=== PATIENT | female | born 1985 | race American Indian/Alaskan Native ===

== ENCOUNTER 2016-07-01 14:48 | Outpatient (CLI) | payer MEDICAID ==
--- NOTE | 2016-07-02 11:28 | Ultrasound Report ---
OB ULTRASOUND: Transabdominal imaging. Gestation: [place] Position: Cephalic Amniotic Fluid: (WNL 7-24 cm) CHANTEL = 21.7 cm Placenta: Anterior Placental Grade: I Heart Rate: 129 BPM Cervical length: 3.0 cm (Normal > 3 cm) NEUROANATOMY VISUALIZED: Cerebellum Lateral Ventricle ANATOMY VISUALIZED: Stomach Kidneys Bladder Diaphragm 4 Chamber Heart Heart 3 Vessel Cord Abd. Cord Insert SPINE VISUALIZED: Transverse Limited spine due to position The following are not demonstrated due to maternal body habitus or lie: cisterna magnum, cerebellum, spine. BPD: 8.8 cm = 35 w 2 d HC: 31.9 cm = 36 w 0 d AC: 33.8 cm = 37 w 5 d FL: 7.3 cm = 37 w 3 d HC/AC Ratio: 0.9 Cephalic Index: 82.0 Estimated Weight: 3132 grams LMP: 09-20-15 Clinical age = 40 w 5 d EDC: 06-26-16 US Gest. Age = 36 w 4 d EDC: 07-25-16 COMMENT: No gestational abnormality identified. Echogenic amniotic fluid consistent with increased meconium.
== END 2016-07-01 18:15 | disposition home or self-care (01) ==
LOC: TRG 14:48 → LD 16:44 → TRG 18:15
PROVIDERS: ATTEND Obstetrics & Gynecology Gynecology
DX: O77.9 Labor and delivery complicated by fetal stress, unspecified (principal); O47.1 False labor at or after 37 completed weeks of gestation; Z3A.39 39 weeks gestation of pregnancy
CPT/HCPCS: 59025; 76805

== ENCOUNTER 2016-07-11 05:32 | Inpatient (IN) | payer MEDICAID ==
[2016-07-11] MEDS ORDERED: PITOCin/NS 20 UNIT/1000ML DRIP 1,000 ML IV ONE (05:39)
[2016-07-11] MEDS ORDERED: LACTATED RINGERS 1,000 ML ONE (05:39)
[2016-07-11] MEDS ORDERED: PITOCin/NS 20 UNIT/1000ML DRIP 1,000 ML IV SCH (05:45)
[2016-07-11] MEDS ORDERED: LACTATED RINGERS 1,000 ML IV SCH (05:45)
[2016-07-11 07:57] LABS: Hematocrit 30.5 % (30.3-42.9); Hemoglobin 10.3 gm/dl (10.1-14.3); Mean Corpuscular HGB Conc 34 % (30-34); Mean Corpuscular Hemoglobin 30 pg (28-32); Mean Corpuscular Volume 89 fl (79-97); Platelet Count 233 K/mm3 (140-440); Red Blood Count 3.42 M/mm3 (3.65-5.03); Red Cell Distribution Width 14.1 % (13.2-15.2); White Blood Count 12.3 K/mm3 (4.5-11.0)
[2016-07-11 09:12] LABS: Urine Drugs of Abuse Note Disclamer
[2016-07-11] MEDS: MOTRIN PO SCH ×3 (10:30→23:45)
[2016-07-11] MEDS ORDERED: TUCKS PAD TP PRN (11:55)
[2016-07-11] MEDS ORDERED: LANSINOH TP PRN (11:55)
[2016-07-11] MEDS ORDERED: BENADRYL PO PRN (11:55)
[2016-07-11] MEDS ORDERED: PHENERGAN PO PRN (11:55)
[2016-07-11] MEDS ORDERED: TYLENOL PO PRN (11:55)
[2016-07-11] MEDS ORDERED: DULCOLAX PR PRN (11:55)
[2016-07-11] MEDS ORDERED: MILK OF MAGNESIA PO PRN (11:55)
[2016-07-11] MEDS ORDERED: DERMOPLAST TP PRN (11:55)
[2016-07-11] MEDS ORDERED: SODIUM CHLORIDE FLUSH SYRINGE 10 ML IV NR (12:00)
[2016-07-11 18:47] LABS: HIV-1 Antigen p24 Non React (Non React); HIVR-1/2 Ab Non React (Non React)
[2016-07-11 23:59] LABS: Hematocrit 29.2 % (30.3-42.9); Hemoglobin 9.9 gm/dl (10.1-14.3)
[2016-07-12] MEDS: MOTRIN PO SCH ×3 (06:00→17:59)
--- NOTE | 2016-07-12 09:08 | Progress Note ---
Assessment and Plan - Patient Problems (1) Hx of drug abuse Current Visit: Yes Status: Acute Plan to address problem: employee services manager consult (2) (normal spontaneous vaginal delivery) Current Visit: Yes Status: Acute Plan to address problem: Continue routine care (3) No care in current Current Visit: Yes Status: Acute Qualifiers: Trimester: third trimester Qualified Code(s): O09.33 - Supervision of with insufficient care, third trimester Subjective - Subjective Date of service: 07/12/16 Patient reports: appetite normal, voiding normally, pain well controlled, flatus [place]: doing well, nursing well Objective - Vital Signs Latest vital signs: Vital Signs Temp Pulse Pulse Resp BP BP 07/12/16 00:00 98.0 F 67 18 121/73 07/11/16 17:25 98.1 F 62 18 126/69 07/11/16 12:40 97.8 F 66 18 135/77 Intake and Output 07/11/16 07/12/16 07/12/16 22:59 06:59 14:59 Intake Total 720 360 Output Total 1 Balance 719 360 Intake: Oral 720 240 Intake, Free Water 120 Output: Urine 1 Void 1 Other: Total, Intake Amount 240 240 Total, Output Amount 1 # Voids Void 1 - Exam Breasts: Present: deferred Cardiovascular: Present: Regular rate Lungs: Present: Clear to auscultation Abdomen: Present: normal appearance, soft, normal bowel sounds Uterus: Present: normal, firm, fundal height below umbilicus Extremities: Present: normal, edema - Labs Labs: Abnormal lab results 07/11/16 Range/Units 23:45 Hgb 9.9 L (10.1-14.3) gm/dl Hct 29.2 L (30.3-42.9) %
[2016-07-13] MEDS ORDERED: DEPO-PROVERA (CONTRACEPTION) IM ONE ×2 (06:30→10:00)
--- NOTE | 2016-07-13 06:36 | Discharge Summary ---
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 H&H 9.9/29.2, drop related to blood loss with delivery No s/sx of anemia. Doing well s/p vag delivery P: d/c today with instructions DEPO prior to d/c Condition at discharge: Good Disposition: DISCHARGED TO HOME OR SELFCARE - Discharge Diagnoses (1) (normal spontaneous vaginal delivery) Status: Acute Comment: rto 6 weeks Plan - Provider Discharge Summary Activity: routine, no sex for 6 weeks, no heavy lifting 4 weeks, no strenuous exercise Diet: routine Instructions: routine Additional instructions: [] Smoking cessation referral if applicable(refer to patient education folder for contact #) [] Refer to [facility]'s [facility] Booklet Call your doctor immediately for: * Fever > 100.5 * Heavy vaginal bleeding ( >1 pad per hour) * Severe persistent headache * Shortness of breath * Reddened, hot, painful area to leg or breast * Drainage or odor from incision. * Keep incision clean and dry at all times and follow doctor's instructions regarding bathing/showering - Follow up plan Follow up: MARLEEN GOLD MD [Primary Care Provider] - 6 Weeks (congratulations! please call [phone] to schedule your visit in 6 weeks. call with concerns.)
[2016-07-13] MEDS: MOTRIN PO SCH (09:32)
[2016-07-13] MEDS ORDERED: BOOSTRIX IM ONE (10:00)
[2016-07-13 11:34] VITALS: BP 124/89
[2016-07-13] MEDS ORDERED: FLUARIX QUAD 2016-2017(36 MOS+) IM ONE (12:00)
== END 2016-07-13 11:45 | disposition home or self-care (01) | DRG 775 ==
LOC: TRG 05:32 → LD 05:40 → OB 08:06
PROVIDERS: ADMIT Obstetrics & Gynecology; ATTEND Obstetrics & Gynecology
PROC: 10E0XZZ Delivery of Products of Conception, External Approach (ICD-10-PCS; principal; 2016-07-11)
PROC: 3E0234Z Introduction of Serum, Toxoid and Vaccine into Muscle, Percutaneous Approach (ICD-10-PCS; 2016-07-13)
DX: O99.324 Drug use complicating childbirth (principal); O62.3 Precipitate labor; O75.89 Other specified complications of labor and delivery; R71.0 Precipitous drop in hematocrit; O09.33 Supervision of pregnancy with insufficient antenatal care, third trimester; Z3A.38 38 weeks gestation of pregnancy; Z37.0 Single live birth; Z23 Encounter for immunization
CPT/HCPCS: 36415; 80307; 85014; 85018; 85027; 86592; 86706; 86762; 86850; 86900; 86901; 87806; 90471; 90686; 90715; 99211; A6250; G0008; G0463; J1050; J2590; J7120

== ENCOUNTER 2019-02-02 20:47 | Outpatient (CLI) | payer SELFPAY ==
[2019-02-02] MEDS ORDERED: LACTATED RINGERS 500 ML IV ONE (21:08)
[2019-02-02 22:46] LABS: Bacteria,Urine 1+ /HPF (Negative); Bilirubin,Urine NEG (Negative); Blood,Urine NEG (Negative); Color,Urine Straw (Yellow); Protein,Urine <15 mg/dL mg/dL (Negative); Urobilinogen,Urine < 2.0 mg/dL (<2.0); WBC,Urine < 1.0 /HPF (0.0-6.0)
== END 2019-02-02 23:15 | disposition home or self-care (01) ==
LOC: TRG 20:47
PROVIDERS: ATTEND Obstetrics & Gynecology
DX: O47.03 False labor before 37 completed weeks of gestation, third trimester (principal); O13.3 Gestational [pregnancy-induced] hypertension without significant proteinuria, third trimester; Z3A.28 28 weeks gestation of pregnancy
CPT/HCPCS: 59025; 81001